=== PATIENT | male | born 1995 | race Caucasian/White ===

== ENCOUNTER 2018-10-28 14:21 | Emergency (ER) | payer BC, OTHER ==
--- NOTE | 2018-10-28 14:56 | RAD ---
RIGHT ANKLE THREE VIEWS: History: Right ankle pain, trauma. FINDINGS/IMPRESSION: The ankle mortise is maintained. No acute fracture or dislocation is identified. Soft tissue swelling is present. POS: [facility]
== END 2018-10-28 15:50 | disposition home or self-care (01) ==
LOC: ERS 14:21
DX: S93.401A Sprain of unspecified ligament of right ankle, initial encounter (principal); F17.210 Nicotine dependence, cigarettes, uncomplicated; Z71.6 Tobacco abuse counseling; X50.1XXA Overexertion from prolonged static or awkward postures, initial encounter
CPT/HCPCS: 99406

== ENCOUNTER 2020-01-14 10:28 | Outpatient (CLI) | payer BC ==
--- NOTE | 2020-01-14 10:42 | RAD ---
XR Chest Pa Lat STANDARD HISTORY: Lightheadedness COMPARISON: None FINDINGS: The heart size is normal. The lungs are well expanded without focal areas of consolidation, pneumothorax or pleural effusions. IMPRESSION: No radiographic evidence of acute cardiopulmonary process.
== END 2020-01-14 10:29 | disposition home or self-care (01) ==
LOC: BICRAD 10:28
PROVIDERS: ATTEND Physician Assistant
DX: R42 Dizziness and giddiness (principal)
CPT/HCPCS: 36415; 71046; 85007; 85027; 85060

== ENCOUNTER 2020-01-18 09:14 | Outpatient (CLI) | payer BC ==
[2020-01-18] MEDS ORDERED: Iopamidol 370 76% 100 ML VIAL ONE (12:40)
--- NOTE | 2020-01-18 13:10 | CT ---
ABDOMEN AND PELVIC CT SCAN WITH IV CONTRAST: Date: 01/18/2020 HISTORY: Left lower quadrant abdominal tenderness, elevated C-reactive protein, leukocytosis, lightheadedness. FINDINGS: Visualized lung bases appear unremarkable. There is evidence for gastroesophageal reflux with a small associated hiatal hernia. The visualized liver, gallbladder, pancreas, spleen, and adrenal glands are unremarkable. Tiny nonobs tructing left lower pole renal calculus. No evidence for acute obstruction. Normal appearing appen an. Focal contraction wave involving the distal antrum of the stomach. Focal prominent disc protrusi on at L4-L5 with associated thecal sac compression and central canal and lateral recess stenosis. Fat -containing left inguinal hernia. IMPRESSION: 1. Hiatal hernia with associated gastroesophageal reflux. 2. Tiny nonobstructing left upper pole renal calculus without evidence for acute obstruction. 3. Normal appearing appendix. 4. Left inguinal fat-containing hernia. POS: [facility]
== END 2020-01-18 09:15 | disposition home or self-care (01) ==
LOC: CT 09:14
PROVIDERS: ATTEND Physician Assistant
DX: R10.814 Left lower quadrant abdominal tenderness (principal); D72.829 Elevated white blood cell count, unspecified; R79.82 Elevated C-reactive protein (CRP); R42 Dizziness and giddiness; K21.9 Gastro-esophageal reflux disease without esophagitis; K44.9 Diaphragmatic hernia without obstruction or gangrene; K40.90 Unilateral inguinal hernia, without obstruction or gangrene, not specified as recurrent
CPT/HCPCS: 74177; Q9967